=== PATIENT | female | born 1960 | race Caucasian/White ===

== ENCOUNTER 2018-08-11 14:28 | Emergency (ER) | payer OTHER ==
--- NOTE | 2018-08-11 16:25 | RAD ---
RIGHT HIP TWO VIEWS: HISTORY: A 58-year-old female with a history of right hip pain following a fall off a top bunk. FINDINGS: Arthrosis and degenerative changes are noted with joint space loss and lateral acromial subchondral c ystic change. IMPRESSION: Degenerative and osteoarthrosis changes without acute fracture or dislocation. POS: [facility]
== END 2018-08-11 17:04 | disposition home or self-care (01) ==
LOC: ERS 14:28
DX: S70.01XA Contusion of right hip, initial encounter (principal); M19.90 Unspecified osteoarthritis, unspecified site; W19.XXXA Unspecified fall, initial encounter

== ENCOUNTER 2018-08-15 08:09 | Emergency (ER) | payer OTHER ==
[2018-08-15] MEDS ORDERED: diphenhydrAMINE 25 MG CAP ONE (08:33)
[2018-08-15 08:48] LABS: #Eosinphils 0.1 thou/uL (0.0-0.7); #Lymphocytes 1.8 thou/uL (1.20-3.40); #Monocytes 0.5 thou/uL (0.11-0.59); #Neutrophils 3.2 thou/uL (1.40-6.50); %Basophils 0.6 % (0.0-1.0); %Eosinophils 1.8 % (0.0-10.0); %Lymphocytes 31.9 % (21.0-51.0); %Monocytes 8.3 % (0.0-10.0); %Neutrophils 57.4 % (42.0-75.0); Hemoglobin 12.8 g/dL (12.0-16.0); Mean Corpuscular HGB CONC 32.4 g/dL (32.0-36.0); Mean Corpuscular Hemoglobin 30.4 pg (27.0-31.0); Mean Corpuscular Volume 93.8 fL (78.0-98.0); Platelet Count 297 thou/uL (130-400); RBC Distribution Width 12.7 % (11.5-14.5); Red Blood Cell (RBC) Count 4.23 mill/uL (4.20-5.40); White Blood Cell (WBC) Count 5.5 thou/uL (4.8-10.8)
--- NOTE | 2018-08-15 08:59 | RAD ---
PORTABLE CHEST 1 VIEW: Date: 08/15/18 Time: 0839 hours HISTORY: Dyspnea. FINDINGS: The heart size is normal. The lungs are expanded without focal areas of consolidation, pneumothorax, or pleural effusions. IMPRESSION: No radiographic evidence of acute cardiopulmonary process. POS: [facility]
[2018-08-15 09:07] LABS: ALT (SGPT) 8 U/L (8-55); AST (SGOT) 11 U/L (5-34); Albumin 4.1 g/dL (3.5-5.0); Alkaline Phosphatase 79 U/L (40-150); Anion Gap 13 mmol/L (10-20); BUN (Urea Nitrogen) 18 mg/dL (9.8-20.1); Bilirubin, Total 0.3 mg/dL (0.2-1.2); Calc. Creatinine Clearance 0 mL/min (70-130); Calcium 9.5 mg/dL (7.8-10.44); Carbon Dioxide 26 mmol/L (22-29); Chloride 105 mmol/L (98-107); Estimated GFR-MDRD 78; Globulin 3.1 g/dL (2.4-3.5); Glucose 78 mg/dL (70-105); Potassium 4.3 mmol/L (3.5-5.1); Protein, Total 7.2 g/dL (6.0-8.3); Sodium 140 mmol/L (136-145)
[2018-08-15 09:16] LABS: CKMB 0.7 ng/mL (0-6.6); Troponin I Less than 0.010 ng/mL (< 0.028)
--- NOTE | 2018-08-16 16:50 | EKG ---
Test Reason : Blood Pressure : / mmHG Vent. Rate : 076 BPM Atrial Rate : 076 BPM P-R Int : 134 ms QRS Dur : 090 ms QT Int : 382 ms P-R-T Axes : 071 074 069 degrees QTc Int : 429 ms Normal sinus rhythm Possible Left atrial enlargement Borderline ECG Confirmed by MONROE ADDISON, DR. Garza ([id number]) on 08/16/2018 4:50:11 PM Referred By: ER Confirmed By:DR. Kayla CHILDRESS MD
== END 2018-08-15 09:45 | disposition home or self-care (01) ==
LOC: ERS 08:09
DX: R21 Rash and other nonspecific skin eruption (principal); J44.9 Chronic obstructive pulmonary disease, unspecified; Z79.899 Other long term (current) drug therapy
CPT/HCPCS: 36415; 71045; 80053; 82553; 83880; 84484; 85025; 93005

== ENCOUNTER 2018-10-05 11:31 | Emergency (ER) | payer OTHER ==
[2018-10-05] MEDS ORDERED: Dexamethasone 4 MG TAB ONE (11:51)
--- NOTE | 2018-10-05 12:15 | RAD ---
2 VIEW CHEST: Date: 10/05/18 HISTORY: Congestion and cough. COMPARISON: 08/15/18. FINDINGS: A new focal opacity in the left lung base at the CP angle could represent atelectasis or infiltrate. Lungs otherwise are clear and unchanged. Heart and mediastinum unremarkable. IMPRESSION: New opacity in the left lung base near the CP angle, probably atelectasis. Follow-up recommended. POS: [facility]
== END 2018-10-05 12:34 | disposition home or self-care (01) ==
LOC: ERS 11:31
DX: J45.909 Unspecified asthma, uncomplicated (principal); J98.11 Atelectasis; M71.20 Synovial cyst of popliteal space [Baker], unspecified knee; I10 Essential (primary) hypertension; J44.9 Chronic obstructive pulmonary disease, unspecified; Z87.891 Personal history of nicotine dependence; Z79.899 Other long term (current) drug therapy; Z79.82 Long term (current) use of aspirin
CPT/HCPCS: 71046; 94640; J7620; J8540